=== PATIENT | male | born 1985 | race Hispanic/Latino ===

== ENCOUNTER 2018-07-19 22:37 | Emergency (ER) | payer OTHER ==
[~2018-07-19] VITALS: Ht 170.2 cm; Wt 85.7 kg
[2018-07-19] MEDS ORDERED: METHYLPREDNISOLONE SOD SUCC 125 MG/2ML VIAL ONE (22:57)
[2018-07-19] MEDS ORDERED: METHYLPREDNISOLONE SOD SUCC 125 MG/2ML VIAL IM ONE (23:00)
[2018-07-19] MEDS ORDERED: PREDNISONE20 MG PO (23:07)
[2018-07-20 00:02] VITALS: BP 134/89
== END 2018-07-19 23:45 | disposition home or self-care (01) ==
LOC: ER 22:37
DX: R19.7 Diarrhea, unspecified (principal); R11.0 Nausea; K51.90 Ulcerative colitis, unspecified, without complications
CPT/HCPCS: 96372; 99283; J2930

== ENCOUNTER 2022-04-06 19:08 | Emergency (ER) | payer OTHER ==
[~2022-04-06] VITALS: Ht 170.2 cm; Wt 85.7 kg
[~2022-04-06 19:08] MED LIST: PREDNISONE20 MG PO
[2022-04-06] MEDS ORDERED: PREDNISONE20 MG PO (20:36)
[2022-04-06] MEDS ORDERED: AUGMENTIN 500-1 EACH PO (20:36)
== END 2022-04-06 20:58 | disposition home or self-care (01) ==
LOC: ER 19:14
DX: K11.20 Sialoadenitis, unspecified (principal)
CPT/HCPCS: 70486; 99283